=== PATIENT | male | born 1955 | race Caucasian/White ===

== ENCOUNTER 2017-02-06 17:20 | Emergency (ER) | payer BC ==
[~2017-02-06] VITALS: Ht 182.9 cm; Wt 118.8 kg
[2017-02-06 17:27] VITALS: TEMP 36.5; Ht 182.9 cm; Wt 118.8 kg
[2017-02-06] MEDS ORDERED: ONDANSETRON INJ 2 MG/ML 2 ML VIAL IV STA (17:42)
[2017-02-06] MEDS ORDERED: BACL10TA PO (17:46)
[2017-02-06] MEDS ORDERED: MELO7.5T5 PO (17:46)
[2017-02-06] MEDS: HYDROmorphone INJ 1 MG/ML SYR IV PRN ×2 (17:52→18:12)
[2017-02-06 18:00] LABS: BASO % 0.4 %; BASO ABS # 0.03 K/uL (0-0.2); COMPLETE YES; EOS % 5.6 %; HEMATOCRIT 46.7 % (42-52); IG% 0.1 %; LYMPH % 29.7 %; LYMPH ABS # 2.06 K/uL (1.2-3.4); MEAN CELL VOLUME 90.2 fL (80-100); MEAN CORPUSCULAR HEMOGLOBIN 31.3 pg (25-34); MEAN CORPUSCULAR HGB CONC 34.7 g/dl (32-36); MEAN PLATELET VOLUME 9.3 fL (7.4-10.4); MONO % 8.8 %; NEUT % 55.4 %; PLATELET COUNT 199 K/uL (130-400); RED BLOOD COUNT 5.18 M/uL (4.7-6.1); WHITE BLOOD COUNT 6.94 K/uL (4.8-10.8)
[2017-02-06 18:20] LABS: BLOOD UREA NITROGEN 24 mg/dl (7-18); BUN/CREATININE RATIO 25.1 (10-20); C-REACTIVE PROTEIN < 0.29 mg/dl (0-0.29); CALCIUM 9.2 mg/dl (8.5-10.1); CARBON DIOXIDE 27 mmol/L (21-32); CHLORIDE 108 mmol/L (98-107); CREATININE 0.95 mg/dl (0.60-1.40); GLUCOSE 98 mg/dl (70-99); POTASSIUM 4.1 mmol/L (3.5-5.1); SODIUM 141 mmol/L (136-145)
--- NOTE | 2017-02-06 18:51 | DIAGNOSTIC IMAGING REPORT ---
LUMBAR SPINE W/O CONTRAST HISTORY: Pain Back pain, incontinence TECHNIQUE: Multiplanar multisequence MRI of the lumbar spine was performed without the use of contrast. COMPARISON: None. FINDINGS: For the purpose of the report the L5-S1 disc space will be located on axial image 23 of 25. Normal signal characteristics of the vertebral bodies as well as intervertebral discs. Mild disc desiccation L5-S1. L1-L2: No significant central canal or neural foraminal narrowing. L2-L3: No significant central canal or neural foraminal narrowing. L3-L4: No significant central canal or neural foraminal narrowing. L4-L5: No significant central canal or neural foraminal narrowing. L5-S1: Focal left posterior disc herniation. Left posterior extruded disc fragment measuring 10 x 7 mm. This displaces the left S1 nerve root posteriorly. Mild narrowing of the neuroforamina bilaterally. IMPRESSION: 1. Focal left posterior disc herniation L5-S1 2. Left S1 nerve root is displaced posteriorly. 3. The Remainder of the study is negative. The above report was generated using voice recognition software. It may contain grammatical, syntax or spelling errors. Electronically signed by: Dexter Rosado M.D. 02/06/2017 6:50 PM Dictated Date/Time: 02/06/2017 6:46 PM
[2017-02-06 19:02] VITALS: BP 132/87; PULSE 70; O2SAT 95
[2017-02-06] MEDS ORDERED: PRED50TA PO ×2 (19:13→19:18)
[2017-02-06] MEDS ORDERED: OXYC1TAB3 PO ×2 (19:13→19:18)
[2017-02-06] MEDS ORDERED: DEXAMETHASONE SOD INJ 10 MG/ML VIAL IV ONE (19:15)
[2017-02-06] MEDS ORDERED: OXYCODONE IR HOME PACK PO ONE (19:15)
--- NOTE | 2017-02-06 20:56 | EMERGENCY ROOM VISIT NOTE ---
History Report prepared by Gerson: Juli Flor Under the Supervision of: Dr. Sunday Bynum M.D. First contact with patient: 17:32 Chief Complaint: BACK PAIN Stated Complaint: BACK AND LEFT LEG PAIN History of Present Illness The patient is a 61 year old male who presents to the Emergency Room with complaints of worsening low back pain for the past 3 weeks. He rates his discomfort as a 9/10 in severity and reports the pain radiates into his left leg , which feels numb. Sitting and walking worsen his pain. He denies any bowel or bladder incontinence. He saw his doctor recently and was given a steroid shot and muscle relaxer, which provided no relief. The patient reports he has lost approximately 15 pounds since his pain began because he cannot get to the kitchen in his home without extreme pain. Pt denies LOC, headache, fevers, chills, diaphoresis, visual changes, neck pain, chest pain, breathing difficulties, nausea, vomiting, abdominal pain, melena, hematochezia, urinary symptoms, weakness, lymphadenopathy, rash, or other complaints. His PCP is Dr. Purcell with [facility]. Source of History: patient Onset: 3 weeks OPERATIONS EXECUTIVE Position: back Symptom Intensity: 9/10 Timing: worsening Modifying Factors (Worsening): rest (sitting), movement (walking) Modifying Factors (Relieving): other (steroid shot and muscle relaxer) Review of Systems See HPI for pertinent positives and negatives. A total of ten systems were reviewed and were otherwise negative. Past Medical & Surgical Medical Problems: (1) Degenerative disc disease Surgical Problems: (1) H/O arthroscopic knee surgery Social History Smoking Status: Former Smoker Alcohol Use: occasionally Drug Use: none Marital Status: Housing Status: lives with family Occupation Status: employed Current/Historical Medications Scheduled Baclofen (Lioresal), 10 MG PO BID Meloxicam (Mobic), 15 MG PO DAILY Prednisone (Prednisone), 50 MG PO DAILY Scheduled PRN Oxycodone Ir (Roxicodone Ir), 1-2 TAB PO Q4H PRN for Severe Pain Allergies Coded Allergies: Tetracycline (Verified Allergy, Intermediate, 08/15/09) Uncoded Allergies: ANTIBIOTIC UNSURE OF NAME (Allergy, Unknown, 06/24/04) Physical Exam Vital Signs Date Time Temp Pulse Resp B/P (MAP) Pulse Ox O2 Delivery O2 Flow Rate FiO2 02/06/17 19:02 70 18 132/87 95 Room Air 02/06/17 17:27 36.5 79 22 149/83 94 Room Air Physical Exam GENERAL: Awake, alert, uncomfortable-appearing, in no distress HENT: Normocephalic, atraumatic. Oropharynx unremarkable. EYES: Normal conjunctiva. Sclera non-icteric. NECK: Supple. No nuchal rigidity. FROM. No JVD. RESPIRATORY: Clear to auscultation. CARDIAC: Regular rate, normal rhythm. Extremities warm and well perfused. Pulses equal. ABDOMEN: Soft, non-distended. No tenderness to palpation. No rebound or guarding. No masses. RECTAL: Deferred. MUSCULOSKELETAL: Chest examination reveals no tenderness. The back is symmetrical on inspection without obvious abnormality. There is no CVA tenderness to palpation. No joint edema. LOWER EXTREMITIES: Positive straight leg raise. Symmetric reflexes. Normal EHL function. Calves are equal size bilaterally and non-tender. No edema. No discoloration. NEURO: Normal sensorium. No sensory or motor deficits noted. SKIN: No rash or jaundice noted. Medical Decision & Procedures ER Provider Diagnostic Interpretation: Radiology results as stated below per my review and radiologist interpretation: LUMBAR SPINE W/O CONTRAST HISTORY: Pain Back pain, incontinence TECHNIQUE: Multiplanar multisequence MRI of the lumbar spine was performed without the use of contrast. COMPARISON: None. FINDINGS: For the purpose of the report the L5-S1 disc space will be located on axial image 23 of 25. Normal signal characteristics of the vertebral bodies as well as intervertebral discs. Mild disc desiccation L5-S1. L1-L2: No significant central canal or neural foraminal narrowing. L2-L3: No significant central canal or neural foraminal narrowing. L3-L4: No significant central canal or neural foraminal narrowing. L4-L5: No significant central canal or neural foraminal narrowing. L5-S1: Focal left posterior disc herniation. Left posterior extruded disc fragment measuring 10 x 7 mm. This displaces the left S1 nerve root posteriorly. Mild narrowing of the neuroforamina bilaterally. IMPRESSION: 1. Focal left posterior disc herniation L5-S1 2. Left S1 nerve root is displaced posteriorly. 3. The Remainder of the study is negative. The above report was generated using voice recognition software. It may contain grammatical, syntax or spelling errors. Electronically signed by: Dexter Rosado M.D. 02/06/2017 6:50 PM Laboratory Results 02/06/17 17:50 Red Blood Count 5.18, Mean Corpuscular Volume 90.2, Mean Corpuscular Hemoglobin 31.3, Mean Corpuscular Hemoglobin Concent 34.7, Mean Platelet Volume 9.3, Neutrophils (%) (Auto) 55.4, Lymphocytes (%) (Auto) 29.7, Monocytes (%) (Auto) 8.8, Eosinophils (%) (Auto) 5.6, Basophils (%) (Auto) 0.4, Neutrophils # (Auto) 3.84, Lymphocytes # (Auto) 2.06, Monocytes # (Auto) 0.61, Eosinophils # (Auto) 0.39, Basophils # (Auto) 0.03 02/06/17 17:50 Test 02/06/17 17:50 White Blood Count 6.94 K/uL (4.8-10.8) Red Blood Count 5.18 M/uL (4.7-6.1) Hemoglobin 16.2 g/dL (14.0-18.0) Hematocrit 46.7 % (42-52) Mean Corpuscular Volume 90.2 fL (80-100) Mean Corpuscular Hemoglobin 31.3 pg (25-34) Mean Corpuscular Hemoglobin Concent 34.7 g/dl (32-36) Platelet Count 199 K/uL (130-400) Mean Platelet Volume 9.3 fL (7.4-10.4) Neutrophils (%) (Auto) 55.4 % Lymphocytes (%) (Auto) 29.7 % Monocytes (%) (Auto) 8.8 % Eosinophils (%) (Auto) 5.6 % Basophils (%) (Auto) 0.4 % Neutrophils # (Auto) 3.84 K/uL (1.4-6.5) Lymphocytes # (Auto) 2.06 K/uL (1.2-3.4) Monocytes # (Auto) 0.61 K/uL (0.11-0.59) Eosinophils # (Auto) 0.39 K/uL (0-0.5) Basophils # (Auto) 0.03 K/uL (0-0.2) RDW Standard Deviation 40.9 fL (36.4-46.3) RDW Coefficient of Variation 12.4 % (11.5-14.5) Immature Granulocyte % (Auto) 0.1 % Immature Granulocyte # (Auto) 0.01 K/uL (0.00-0.02) Erythrocyte Sedimentation Rate 20 mm/hr (0-14) Anion Gap 6.0 mmol/L (3-11) Est Creatinine Clear Calc Drug Dose 110.0 ml/min Estimated GFR () 100.4 Estimated GFR (Non- 86.7 BUN/Creatinine Ratio 25.1 (10-20) Calcium Level 9.2 mg/dl (8.5-10.1) C-Reactive Protein < 0.29 mg/dl (0-0.29) Laboratory results reviewed by me Medications Administered Medications (Trade) Dose Ordered Sig/Ileana Route Start Time Stop Time Status Last Admin Dose Admin Hydromorphone HCl (Dilaudid Inj) 1 mg Q15M PRN IV 02/06/17 17:45 02/06/17 19:40 DC 02/06/17 18:12 1 MG Ondansetron HCl (Zofran Inj) 4 mg NOW STAT IV 02/06/17 17:42 02/06/17 17:43 DC 02/06/17 17:52 4 MG Dexamethasone Sodium Phosphate (Decadron Inj) 10 mg NOW ONCE IV 02/06/17 19:15 02/06/17 19:16 DC 02/06/17 19:12 10 MG Oxycodone HCl (Roxicodone Immediate Rel 5MG Home Pack) 1 homepack UD ONCE PO 02/06/17 19:15 02/06/17 19:16 DC 02/06/17 19:12 1 HOMEPACK ED Course 1735: The patient was evaluated in room C12. A complete history and physical exam was performed. 1741: Zofran 4 mg IV. 5: Dilaudid 1 mg IV. 1904: I reevaluated the patient. He feels much better after the medications and was able to ambulate to [facility]. I discussed his results and discharge instructions and he verbalized complete understanding and agreement. He is already established with [facility] and will follow up with them in the office. 1914: Oxycodone 5 mg 1 homepack PO, Decadron 10 mg IV. Medical Decision Triage Nursing notes reviewed. The patient's presentation and history were concerning for back pain. Etiologies such as lumbago, sciatica, cauda equina, epidural abscess, osteomyelitis, fracture, aortic disease, metastatic disease, infection, renal colic, gastrointestinal, as well as others were entertained. The patient was evaluated. He was uncomfortable. He was given Dilaudid and Zofran. He felt much better after a second dose of Dilaudid. His blood work is unremarkable. He will for MR imaging and this revealed a significant left- sided disc herniation in the L5-S1 region. This would fit with his area of pain going down the back of the left leg. He has no symptoms at this point to suggest cauda equina or surgical emergency. He is a patient of Dr. Wade and I will refer him to see Dr. Cheema. As he is feeling much more comfortable and can ambulate at this point outpatient management seems appropriate. The patient was given a dose of Decadron IV. He'll be placed on prednisone. He will use oxycodone for breakthrough pain. I did discuss this medication. I gave my usual and customary discussion regarding this issue. If he worsens in any way he will be back. By the evaluation outlined above other emergent etiologies such as those listed in the differential, as well as others, were deemed relatively unlikely. The patient was educated about the findings as listed above. All questions were answered and the patient was pleased with the treatment. Return instructions were outlined and the patient was discharged in stable condition. The patient was referred to orthopedic spine for follow-up for a recheck of the current condition. [place] Drug Monitoring Program Search Results: patient reviewed within database, no issues identified Medication Reconcilliation Current Medication List: was personally reviewed by me Blood Pressure Screening Patient's blood pressure: Elevated blood pressure Blood pressure disposition: Elevated BP felt to be situational Impression Primary Impression: Lumbar herniated disc Additional Impression: Lumbar radiculopathy Scribe Attestation The scribe's documentation has been prepared under my direction and personally reviewed by me in its entirety. I confirm that the note above accurately reflects all work, treatment, procedures, and medical decision making performed by me. Departure Information Dispostion Home / Self-Care Prescriptions Prednisone (Prednisone) 50 Mg Tab 50 MG PO DAILY for 4 Days, #4 TAB Prov: Sunday Bynum MD 02/06/17 Oxycodone Ir (Roxicodone Ir) 5 Mg Tab 1-2 TAB PO Q4H Y for Severe Pain, #24 TAB Prov: Sunday Bynum MD 02/06/17 Referrals Maria M Purcell D.O. (PCP) Patient Instructions My [facility], Spine Disk Common Probs Additional Instructions BACK PAIN/INJURY INSTRUCTIONS: DO NOT drive, drink alcohol, operate machinery, or perform dangerous activities today. You were given medications in the ER that can affect your ability to safely function or operate a vehicle. Prednisone 50mg: Once daily until the prescription is finished. It is best to take this earlier in the day as some patients note occasional difficulty falling asleep when taken in the late evening. Oxycodone (OxyIR) 5mg: Take 1-2 pills every four hours for breakthrough pain. Avoid alcohol, operating machinery or dangerous equipment, working on ladders or roofs, DRIVING, or situations where being under the influence may be dangerous. It is recommended to use an [id number] stool softener such as Colace, 100mg twice daily while taking this medication to avoid constipation. Ibuprofen(Motrin, Advil) may be used for fever or pain. Use 600mg every six hours as needed. Take with food. Avoid using more than 2400mg in a 24 hour period. Do not use 2400mg per day for more than three consecutive days without physician direction. Prolonged inappropriate use can lead to stomach upset or ulcers. This medication can be taken if you need to drive, work, or perform activities which may be dangerous when taking narcotic pain medication. (AND/OR) Acetaminophen(Tylenol) may be used for fever or pain. Use 1000mg every six hours as needed. Avoid using more than 4000mg in a 24 hour period. This medication can be taken if you need to drive, work, or perform activities which may be dangerous when taking narcotic pain medication. Rest and avoid heavy lifting until your symptoms resolve and then gradually return to full activity. A good rule of thumb is if it hurts your back to perform a certain activity, then it should be avoided until you are healthy again. A heating pad, warm compresses, or a hot shower may help with tight muscles and can be done several times a day as needed. Continue current medications. Return to the ER immediately for any numbness, tingling, severe pain, loss of control of your bowels or bladder, inability to walk, or as needed. Follow up with your primary care physician tomorrow for a recheck of your current condition. Call Dr. Cheema's office tomorrow to arrange follow up for your herniated L5-S1 disc. Tell the offset printer you were referred from the Emergency Room. Problem Qualifiers
[2017-02-18] MEDS ORDERED: METH1TAB81 PO (08:19)
[2017-02-18] MEDS ORDERED: HYDR4TAB2 PO (08:19)
[2017-02-25] MEDS ORDERED: HYDR-4383 PO (06:58)
== END 2017-02-06 19:25 | disposition home or self-care (01) ==
LOC: C.EDB 17:21 → C.EDC 19:25
DX: M51.26 Other intervertebral disc displacement, lumbar region (principal); M54.16 Radiculopathy, lumbar region; Z87.891 Personal history of nicotine dependence

== ENCOUNTER 2017-02-24 10:06 | Observation (INO) | payer BC ==
[2017-02-18 08:02] VITALS: BMI 35.0
--- NOTE | 2017-02-18 08:36 | PAT Medication Instructions ---
Service Date Feb 18, 2017. Current Home Medication List Hydromorphone Hcl (Dilaudid), 1-2 TAB PO Q4H PRN for Pain Methylprednisolone (Medrol), 4 MG PO DIRECTED Medication Instructions For Your Scheduled Surgery Methylprednisolone (Medrol), 4 MG PO DIRECTED (to be completed prior to surgery) - Take the following medications the morning of surgery with a sip of water: Hydromorphone Hcl (Dilaudid), 1-2 TAB PO Q4H PRN for Pain (okay to take up to 4 hours prior to surgery if needed) - Take the following medications as scheduled the night before surgery: Hydromorphone Hcl (Dilaudid), 1-2 TAB PO Q4H PRN for Pain (if needed) If you have any questions please call us at [phone] or [phone] or [phone]
--- NOTE | 2017-02-18 09:06 | DIAGNOSTIC IMAGING REPORT ---
CHEST PREADMISSION(PA/LAT) CLINICAL HISTORY: Preoperative chest COMPARISON STUDY: No previous studies for comparison. FINDINGS: The cardiac and mediastinal contours are normal. There is no evidence of focal pulmonary consolidation. There is no evidence of failure. No pleural effusions are visualized.[ IMPRESSION: No active disease in the chest. Electronically signed by: Román Yen M.D. 02/18/2017 9:05 AM Dictated Date/Time: 02/18/2017 9:04 AM
[2017-02-18 10:48] LABS: PROTHROMBIN TIME (PATIENT) 10.2 SECONDS (9.0-12.0)
[2017-02-18 10:49] LABS: URINE APPEARANCE CLEAR (CLEAR); URINE BILIRUBIN NEG (NEG); URINE COLOR YELLOW; URINE NITRITE NEG (NEG); URINE SPECIFIC GRAVITY 1.026 (1.000-1.030); UROBILINOGEN NEG (NEG)
[2017-02-18 10:59] LABS: MANUAL MICROSCOPIC REQUIRED? NO; REVIEW REQ? NO
[~2017-02-24] VITALS: Ht 182.9 cm; Wt 118.1 kg
[2017-02-24] VITALS (8 sets, daily range): BP systolic 112–148; BP diastolic 62–92; PULSE 70–82; TEMP 36.3–36.8; O2SAT 94–97; Ht 182.9 cm; Wt 118.1 kg
[~2017-02-24 10:06] MED LIST: ATROPINE SULFATE 0.1 MG/ML 5ML SYR IV PRN; CEFAZOLIN 2000 MG/60 ML D5W IV SCH; EpHEDrine SULFATE INJ 50 MG/ML AMP IV PRN; FENTANYL CITRATE INJ 50 MCG/1 ML 2 ML VIAL IV PRN; HYDR4TAB2 PO; HYDROmorphone INJ 1 MG/ML SYR IV PRN; LACTATED RINGER'S 1000ML 1,000 ML IV SCH; METH1TAB81 PO; ONDANSETRON INJ 2 MG/ML 2 ML VIAL IV PRN; SODIUM CHLORIDE 0.9% 1000ML 1,000 ML IV SCH
[2017-02-24] MEDS ORDERED: MIDAZOLAM HCL 1 MG/ML 2ML VIAL ONE (11:02)
[2017-02-24] MEDS ORDERED: FENTANYL CITRATE INJ 50 MCG/1 ML 2 ML VIAL ONE ×4 (11:03→13:10)
[2017-02-24] MEDS ORDERED: GELATIN SPONGE SZ 100 ONE (11:12)
[2017-02-24] MEDS ORDERED: THROMBIN FOR SOLN 20000 UNIT KIT ONE (11:12)
[2017-02-24] MEDS ORDERED: BACITRACIN 50000 UNIT VIAL ONE (11:13)
[2017-02-24] MEDS ORDERED: VANCOMYCIN HCL 1000MG/20ML VIAL ONE (11:13)
[2017-02-24] MEDS ORDERED: BUPIVACAINE/EPINEPHRINE 0.5% MPF 1:200,000 10 ML VIAL ONE (11:15)
--- NOTE | 2017-02-24 11:38 | History and Physical ---
History & Physical Date Feb 24, 2017. Chief Complaint Lumbar spine and lower extremity pain History of Present Illness The patient is a 61 year old male with complaints of back and leg pain is incapacitating. Her conservative measures. Past Medical/Surgical History Back pain, obesity Meniscectomy bilateral knees Additional History Hepatic Disease: No Endocrine Disorder: No Kidney Disease: No Hypertension: No Heart Disease: No Bleeding Tendencies: No Infectious Diseases: No Allergies Coded Allergies: Tetracycline (Verified Allergy, Intermediate, 02/24/17) Home Medications Scheduled Methylprednisolone (Medrol), 4 MG PO DIRECTED Scheduled PRN Hydromorphone Hcl (Dilaudid), 1-2 TAB PO Q4H PRN for Pain Physical Examination Skin: warm/dry Eyes: normal inspection ENT: normal ENT inspection Neck: supple Respiratory/Chest: lungs clear Cardiovascular: regular rate, rhythm Abdomen / GI: normal bowel sounds Back: normal inspection Extremities: normal inspection Genitourinary - Male: normal male genitalia Neurologic/Psych: + pertinent finding (significant pain with straight leg raising on the left-hand side. Loss of Achilles reflex and loss of sensation S1 nerve root distribution.) Diagnosis Diagnosis Disc herniation lumbar spine 5 S1 ASA Classification: ASA Class II Plan of Treatment Plan of treatment Lumbar spine discectomy L5-S1
[2017-02-24] MEDS ORDERED: HYDROmorphone INJ 2 MG/ML SYR/VIAL ONE ×2 (12:09→13:09)
[2017-02-24] MEDS ORDERED: DEXAMETHASONE SOD INJ 4 MG/ML VIAL ONE (12:49)
[2017-02-24] MEDS ORDERED: ONDANSETRON INJ 2 MG/ML 2 ML VIAL ONE (12:49)
[2017-02-24] MEDS ORDERED: NEOSTIGMINE METHYLSULFATE 5 MG/5 ML SYR ONE (12:49)
[2017-02-24] MEDS ORDERED: LIDOCAINE HCL 2% 2 ML VIAL (20MG/ML) ONE (12:49)
[2017-02-24] MEDS ORDERED: GLYCOPYRROLATE INJ 0.2 MG/ML VIAL ONE (12:49)
[2017-02-24] MEDS ORDERED: ROCURONIUM BROMIDE 10 MG/ML 5 ML VIAL ONE (12:49)
[2017-02-24] MEDS ORDERED: PROPOFOL IV EMULSION 10 MG/ML 20 ML VIAL IV ONE (12:49)
[2017-02-24] MEDS ORDERED: SODIUM CHLORIDE 0.9% 1000ML 1,000 ML IV SCH (13:07)
--- NOTE | 2017-02-24 13:10 | [facility] Operative Report ---
Operative Report Operative Date Feb 24, 2017. Pre-Operative Diagnosis Disc Herniation Lumbar Spine L5-S1 Post-Operative Diagnosis Disc Herniation Lumbar Spine L5-S1 Procedure(s) Performed Lumbar Spine Discectomy L5-S1 Surgeon Dr Cheema Bread Oven Operator Surgeon(s) Alden Casey Estimated Blood Loss 20cc Findings Large disc herniation lumbar spine L5-S1 Specimens None as per surgeon Complication(s) None Disposition Recovery Room / PACU Indications Paralyzing incapacitating leg pain Description of Procedure Patient was taken to the operating room and general intubated anesthetic provided to the patient. Placed prone on the Raymond table. Scrubbed prepped draped sterile. Skin incision fascial incision putting a deep self-retaining retractor. Used 3 inch blades. Did a laminotomy foraminotomies at L5-S1 on the left side [place] preserving all midline structures. Retracted the nerve root in a medial direction with the dura and were able to see quite easily a large disc herniation the the disc was actually in the process of extruding. He is very size pituitary Cruz juris the disc material as best possible completed the foraminotomies. Irrigated and closed in layers over vancomycin powder and Hemovac drain. He is 1 Vicryl suture to all and 30 on this on the skin surface sterile dressings applied. Patient returned to the recovery room satisfactory and stable condition. EBL 20 mL no complications. Sponge and needle count correct at the close I attest to the content of the Intraoperative Record and any orders documented therein. Any exceptions are noted below.
[2017-02-24] MEDS ORDERED: METOCLOPRAMIDE HCL INJ 5 MG/ML 2 ML VIAL IV PRN (13:15)
[2017-02-24] MEDS ORDERED: ACETAMINOPHEN 325 MG TAB PO PRN (13:15)
[2017-02-24] MEDS ORDERED: LORAZEPAM INJ 1 MG in SYRINGE 0 ML IV PRN (13:15)
[2017-02-24] MEDS ORDERED: MAGNESIUM HYDROXIDE SUSP 30 ML UDC PO PRN (13:15)
[2017-02-24] MEDS ORDERED: PROMETHAZINE HCL INJ 12.5 MG in SODIUM CHLORIDE 0.9% 50ML 50 ML IV PRN (13:15)
[2017-02-24] MEDS ORDERED: HYDROmorphone INJ 2 MG/ML SYR/VIAL IV PRN (13:15)
[2017-02-24] MEDS ORDERED: OXYCODONE/ACETAMINOPHEN 5-325 TAB PO PRN ×2 (13:15)
[2017-02-24] MEDS ORDERED: LORAZEPAM 1 MG TAB PO PRN (13:15)
[2017-02-24] MEDS ORDERED: HYDROmorphone INJ 1 MG/ML SYR IV PRN (13:15)
[2017-02-24] MEDS ORDERED: ONDANSETRON INJ 2 MG/ML 2 ML VIAL IV PRN (13:15)
--- NOTE | 2017-02-24 13:25 | DIAGNOSTIC IMAGING REPORT ---
SPINE ONE VIEW, ANY LEVEL HISTORY: Discectomy. FLUOROSCOPY TIME: 1 segment. FINDINGS: Intraoperative fluoroscopy was provided for the lumbar spine. fluoroscopic spot images were obtained. IMPRESSION: Fluoroscopy provided for a L5-S1 discectomy. The above report was generated using voice recognition software. It may contain grammatical, syntax or spelling errors. Electronically signed by: Dexter Rosado M.D. 02/24/2017 1:24 PM Dictated Date/Time: 02/24/2017 1:23 PM
--- NOTE | 2017-02-24 13:35 | Anesthesiology Progress Note ---
Anesthesia Post Op Note Date & Time Feb 24, 2017 at 13:35 Vital Signs Pain Intensity: 3 Vital Signs Past 12 Hours Date Time Temp Pulse Resp B/P (MAP) Pulse Ox O2 Delivery O2 Flow Rate FiO2 02/24/17 13:33 36.4 02/24/17 13:32 76 14 02/24/17 13:32 76 14 95 02/24/17 13:30 149/88 02/24/17 13:27 79 12 02/24/17 13:27 80 12 93 02/24/17 13:25 149/88 02/24/17 13:22 74 12 96 02/24/17 13:22 72 12 02/24/17 13:20 154/93 02/24/17 13:17 75 18 02/24/17 13:17 75 18 95 02/24/17 13:15 Nasal Cannula 4 02/24/17 13:15 146/87 02/24/17 13:13 151/85 02/24/17 13:12 74 17 97 02/24/17 13:12 74 17 02/24/17 13:02 36.4 85 14 156/90 96 Mask 10 02/24/17 10:23 36.6 77 20 148/92 (110) 96 Room Air Notes Mental Status: alert / awake / arousable, participated in evaluation Pt Amnestic to Procedure: Yes Nausea / Vomiting: adequately controlled Pain: adequately controlled Airway Patency, RR, SpO2: stable & adequate BP & HR: stable & adequate Hydration State: stable & adequate Anesthetic Complications: no major complications apparent
[2017-02-24] MEDS ORDERED: IV FLUIDS COMPLETED PRN (13:45)
--- NOTE | 2017-02-24 13:57 | Discharge Instructions ---
Discharge Instructions Date of Service Feb 24, 2017. Admission Reason for Admission: Lumbar Disc Herniation L5-S1 Discharge Discharge Diagnosis / Problem: same as above Discharge Goals Goal(s): Improve function Activity Recommendations Activity Limitations: as noted below Lifting Limitations: no more than 5 pounds Exercise/Sports Limitations: until after follow-up appointment May Resume Sexual Activity: after follow-up appointment Shower/Bathe: keep incision dry be very careful . Instructions / Follow-Up Instructions / Follow-Up MEDICATIONS: Please take your prescriptions as instructed at your pre-op appointment. SPECIAL CARE: The following information is intended to answer some of the common questions and concerns regarding your surgery. Each patient is an individual and receives individual counselling throughout the course of treatment, from diagnosis to surgery all the way through recovery. What follows is not an exhaustive list, but should be a useful guide to some of the common questions and concerns patients have regarding their surgeries. These are not provided to keep you from calling us; rather, they give you something accurate and concrete to reference as you recover from your procedure. If you need us, we are available to you. As always, if you are not sure about something, call us at [phone]. MEDICAL EMERGENCIES: For these conditions, call 911 or go to your local hospital-based Emergency Department - not [facility] or equivalent. * Paralysis * Severe chest pain or difficulty breathing * Swelling or redness of either leg Spine procedures can be rather complex and though complications are rare, they do occur. In such cases, effective advice regarding emergency situations cannot always be addressed over the telephone. You may be referred to the emergency department for more effective management of your problem. Activity Limitations: It is important to give your body time to heal, so please limit your activities : * In general, don't do anything that moves your spine too much. You should avoid contact sports, twisting or heavy lifting while you recover. * 5-10 pounds is all you should attempt to lift. * You should not plan on driving for approximately 3 weeks and you should avoid traveling more than 30-45 minutes at a time. Longer trips should be broken down with walking breaks spaced appropriately. * Physical therapy is not usually required. * Walking and good posture practices will help you recover and regain your function. * Avoid straining or sudden changes in position. * In general, the goal is to take it easy and recover. Don't cause any new problems. Just relax. Showers: * Do not take a bath, use a Jacuzzi or hot tub or otherwise submerge your incision. * It is usually safe to take a shower 4-5 days after your surgery. * Your incision does not require any special creams or ointments. * Simply clean it with soap and water, dry and re-dress with a clean bandage afterwards. Incision: * Keep incision clean, dry and protected until your first follow-up appointment. * Some amount of drainage and redness is normal. Any drainage should be fairly clear and not have a foul odor. * If you feel anything is wrong or you have excessive drainage, please call us. * Your stitches and thomas will be removed 10-14 days after your surgery. At the time of your first post-op visit. * Neck surgeries are typically closed with a suture underneath the skin. The steri-strips over the incision should be maintained until we see you in the office. Bracing: * You may be provided with a back or neck brace to encourage good posture and prevent injury. It will remind you not to do too much as you heal and will alert others to the fact that you have had a surgery. * Back braces may be removed for showers and when you are resting at home. They must be worn when you are walking around for any period of time or for travel. * For neck surgery, you will likely be provided with two cervical collars. The soft collar ([place] or foam rubber) is worn most commonly throughout the day and while sleeping. The plastic collar (provided at the hospital) is for showering/bathing. * Except while eating, collars should remain in place. More specifically, bracing is provided for a purpose and should be worn. * Please obtain your brace or collars prior to your operation and bring them to the hospital with you on the day of surgery. * You should also bring your collars to your post-op appointment with Dr. Cheema. You should always take good care of your body and practice healthy habits, especially following surgery. You should: * Follow your doctor's treatment plan * Sit and stand properly with good posture (ears over shoulders, shoulders over hips) Don't slouch * Learn to lift correctly * Exercise regularly (low-impact aerobic exercise is especially good, but check with your doctor first) * Generally, be up and walking for 5-10 minutes at a time at least 3-4 times per day from the day you get home * Increasing walking to tolerance until you can walk for 20-30 minutes at a time * Attain and maintain a healthy body weight * Eat healthy foods ( a well-balanced, low-fat diet rich in fruits and vegetables) and get enough calcium * Avoid excessive use of alcohol When to call our office - If you notice any of the following: * Increased pain not relieve by pain medicine * Fevers greater then 100 degrees F, chills or flu symptoms * Increased redness around incision * Drainage from the incision that is not clear * Any foul smelling drainage * Swelling or fluid collection beneath the skin Miscellaneous: * In the hospital, you may be given a walker or cane for support while walking. These are temporary needs and are intended to prevent injuries due to falls. You may discontinue them when you feel strong and steady enough on your feet. * Sleep in a comfortable position. We find that many patients find a lounge chair or recliner with several pillows to be beneficial in the early post-operative period. * The support stockings should be used for 7-10 days and may be discontinued when you are back to walking more and conducting usual household activities. No problem is insignificant. We are here to help you and get you well. Contact us at [phone]. Definitions: Foraminotomy: If part of the disc or a bone spur (osteophyte) is pressing on a nerve as it leaves the vertebra (through an exit called the foramen), a foraminotomy may be done. Otomy means "to make an opening." A foraminotomy is making the opening of the foramen larger, so the nerve can exit without being compressed. Laminotomy: Similar to the foraminotomy, a laminotomy makes a larger opening, this time in your bony plate protecting your spinal canal and spinal cord (the lamina). The lamina may be pressing on your nerve, so the surgeon may make more room for the nerves using a laminotomy. Laminectomy: Sometimes, a laminotomy is not sufficient. The surgeon may need to remove all or part of the lamina. This procedure is called a laminectomy. This can often be done at many levels without any harmful effects. Current Hospital Diet Patient's current hospital diet: Regular Diet Discharge Diet Recommended Diet: Regular Diet Procedures Procedures Performed: Lumbar Spine Discectomy L5-S1 Pending Studies Studies pending at discharge: no Medical Emergencies . Who to Call and When: Medical Emergencies: If at any time you feel your situation is an emergency, please call 911 immediately. . Non-Emergent Contact Non-Emergency issues call your: Surgeon Call Non-Emergent contact if: you have any medication questions . "Provider Documentation" section prepared by Sunday Cheema. . VTE Core Measure Inpt VTE Proph given/why not?: Treatment not indicated
[2017-02-24] MEDS: KETOROLAC TROMETHAMINE 30 MG/ML VIAL IV SCH ×2 (15:52→21:43)
[2017-02-24] MEDS: DEXAMETHASONE INJ 10 MG in SYRINGE 0 ML IV SCH (20:21)
[2017-02-24] MEDS: CEFAZOLIN IV 2,000 MG in DEXTROSE 5% 50ML 50 ML IV SCH (20:21)
[2017-02-24] MEDS ORDERED: NURSING VERBAL MED ORDER ONE (22:00)
[2017-02-25] MEDS: CEFAZOLIN IV 2,000 MG in DEXTROSE 5% 50ML 50 ML IV SCH ×2 (03:48→11:40)
[2017-02-25] MEDS: DEXAMETHASONE INJ 10 MG in SYRINGE 0 ML IV SCH ×2 (03:49→11:39)
[2017-02-25] MEDS: KETOROLAC TROMETHAMINE 30 MG/ML VIAL IV SCH ×2 (03:49→10:37)
[2017-02-25 04:00] VITALS: BP 106/64; PULSE 68; TEMP 36.4; O2SAT 93
[2017-02-25] MEDS ORDERED: BISACODYL 5 MG TABEC PO PRN (06:00)
[2017-02-25] MEDS ORDERED: BISACODYL 10 MG SUPP PR PRN (06:00)
[2017-02-25 06:50] VITALS: BP 109/67; PULSE 68; TEMP 36.4; O2SAT 94
[2017-02-25] MEDS ORDERED: HYDR-4383 PO (06:58)
--- NOTE | 2017-02-25 08:11 | DISCHARGE SUMMARY ---
SUBJECTIVE: Moderate complaints of back pain. Minimal lower extremity difficulty. Denies fevers, sweats, chills, confusion. OBJECTIVE: Vital signs stable. Laboratory work not indicated. Afebrile. ASSESSMENT: Status post discectomy lumbar spine. DISPOSITION: Will get him home later on this morning, I would assume around lunch time today. His dressing will be removed. He has instructions and precautions from the office also provided here at the hospital. His followup should be in approximately 12-14 days. Keep his wound clean and dry. His ALEJANDRA support stockings can be DC'd and use the back brace for support.
[2017-02-25] MEDS ORDERED: POLYETHYLENE (MIRALAX) 17 GM PACK PO SCH (09:00)
--- NOTE | 2017-02-25 10:00 | Anesthesiology Progress Note ---
Anesthesia Post Op Note Date & Time Feb 25, 2017 at 09:59 Vital Signs Pain Intensity: 0.0 Vital Signs Past 12 Hours Date Time Temp Pulse Resp B/P (MAP) Pulse Ox O2 Delivery O2 Flow Rate FiO2 02/25/17 07:20 Room Air 02/25/17 06:50 36.4 68 18 109/67 (81) 94 Room Air 02/25/17 04:00 36.4 68 16 106/64 (78) 93 Room Air 02/25/17 00:30 Room Air 02/24/17 22:59 36.8 73 18 114/62 (79) 95 Room Air Notes Mental Status: alert / awake / arousable, participated in evaluation Pt Amnestic to Procedure: Yes Nausea / Vomiting: adequately controlled Pain: adequately controlled Airway Patency, RR, SpO2: stable & adequate BP & HR: stable & adequate Hydration State: stable & adequate Anesthetic Complications: no major complications apparent
[2017-02-25 11:46] VITALS: BP 109/67; PULSE 68; TEMP 36.4; O2SAT 94
== END 2017-02-25 12:38 | disposition home or self-care (01) ==
LOC: C.ACU 10:06 → C.3E 10:48 → ENRESERV 13:30
PROVIDERS: ADMIT Orthopaedic Surgery Orthopaedic Surgery of the Spine; ATTEND Orthopaedic Surgery Orthopaedic Surgery of the Spine
DX: M51.27 Other intervertebral disc displacement, lumbosacral region (principal); M19.90 Unspecified osteoarthritis, unspecified site; Z87.891 Personal history of nicotine dependence

== ENCOUNTER 2021-10-15 20:45 | Inpatient (IN) ==
[2021-10-15] MEDS ORDERED: SODIUM CHLORIDE 0.9% 1000ML 1,000 ML IV ONE ×3 (20:59→23:49)
[2021-10-15] MEDS ORDERED: ONDANSETRON INJ 2 MG/ML 2 ML VIAL IV STA (21:07)
[2021-10-15] MEDS ORDERED: FAMOTIDINE 20MG IV PUSH 20 MG/5 ML SYR IV STA (21:07)
[2021-10-15 21:13] LABS: Basophils # (auto) 0.04 K/uL (0-0.2); Basophils % (auto) 0.2 %; Eosinophils # (auto) 0.12 K/uL (0-0.5); Eosinophils % (auto) 0.7 %; Hematocrit (blood only) 45.2 % (42-52); Hemoglobin 16.2 g/dL (14.0-18.0); Immature Granulocytes # (auto) 0.08 K/uL (0.00-0.02); Immature Granulocytes % (auto) 0.4 %; Lymphocytes % (auto) 7.1 %; Mean Corpuscular Hemoglobin 32.2 pg (25-34); Mean Corpuscular Hgb Conc 35.8 g/dL (32-36); Mean Corpuscular Volume 89.9 fL (80-100); Mean Platelet Volume 9.3 fL (7.4-10.4); Monocytes # (auto) 0.74 K/uL (0.11-0.59); Monocytes % (auto) 4.1 %; Neutrophils # (auto) 15.95 K/uL (1.4-6.5); Neutrophils % (auto) 87.5 %; Platelet Count 263 K/uL (130-400); RDW Coefficient of Variation 13.3 % (11.5-14.5); RDW Standard Deviation 43.5 fL (36.4-46.3); Red Blood Count 5.03 M/uL (4.7-6.1); White Blood Count 18.23 K/uL (4.8-10.8)
[2021-10-15 21:27] LABS: iSTAT Creatinine 1.1 mg/dl (0.6-1.3); iSTAT Ionized Calcium 1.26 mmol/l (1.12-1.32); iSTAT Potassium 3.9 mmol/L (3.3-5.0)
[2021-10-15 21:37] LABS: Troponin I < 0.03 ng/ml (0-0.04)
--- NOTE | 2021-10-15 21:37 | Emergency Department Note ---
Impression & Plan Small bowel obstruction, Intractable nausea and vomiting, Leukocytosis, Acute hypotension ED Provider Note NAME: RIMA CHEN AGE: 66 SEX: M ARRIVES VIA: Walk-In INFORMANT: Patient ED PROVIDER(S): Pranay Curtis MD CHIEF COMPLAINT: Abd pain, PLAN: Disposition: Admit MEDICAL DECISION MAKING: The patient is a pleasant 66-year-old gentleman with a past medical history of hypertension, hyperlipidemia who presents emerge department accompanied by his for evaluation of cute onset epigastric pain and nausea that began around 3 PM when he returned home from work. They report he did take Tums and Pepto- Bismol but felt no relief. He then was appearing diaphoretic and feeling lightheaded and so presented to emergency department. He denies any recent history of similar symptoms. He denies any pattern of exertional chest pain or shortness of breath and reports he is able to exert himself without difficulty. Denies any recent illness, sick contacts On arrival, the patient is uncomfortable appearing but no acute distress, initially afebrile with stable vital signs. However he then began to feel increasing lightheaded and was hypotensive in the 60s and then had significant emesis. 2L NSS IV fluids were initiated and patient was laid supine and his blood pressure responded. He appears clinically dry. His abdomen is mildly distended but soft and nontender. EKG without overt acute ischemia. Chest x-ray mild nonspecific interstitial thickening and otherwise unremarkable per my preliminary review. WBC 18K, nonspecific and suspect may be related to the patient's intractable na usea and vomiting. H/H 16.2/45.2 consistent with the patient's clinically dry appearance. Chemistry without metabolic acidosis. BUN 35 with BUN/creatinine> 30 consistent with suspected dehydration. Electrolytes without significant abnormality. LFTs unremarkable. Troponin negative/undetectable. Lipase not elevated. Covid-19 RNA, NAAT negative. Per preliminary stat rad report: CTA of the chest was negative for PE or acute aortic pathology. Nonspecific interstitial prominence is noted. CT of the abdomen pelvis demonstrates gas and fluid-filled distended proximal small bowel loops which is suggestive of small bowel obstruction. Upon reevaluation the patient was significantly improved appearing after IV fluid hydration, famotidine, Zofran. He reported near resolution of his abdominal pain and nausea. His abdomen was nontender. Given the patient appears significantly improved we agreed to defer NG tube placement at this time. However he does agree with plan for admission for further observation and management. Case was discussed with Sathya Lorenzosan [facility] hospitalist who will evaluate the patient for admission. Triage Nursing notes reviewed and agree them. Prior medical records reviewed Vital Signs: reviewed and remarkable for hypotension. Differential diagnosis: Appendicitis, testicular torsion, infections, diverticulitis, UTI, obstruction, mesenteric ischemia, aortic pathology, inflammatory bowel disease, renal colic, PUD, pancreatitis, biliary pathology, hernia, volvulus, constipation, as well as other pathologies. ER treatment provided: See below. Diagnostics interpreted by me: ECG: Normal sinus rhythm, 65 bpm, no ectopy, no overt ST elevation or depression, QTC 409, QRS 104. Cardiac Monitoring: An order for continuous cardiac monitoring was placed and demonstrated Normal sinus rhythm, 65 bpm, no ectopy. Laboratory studies: See below Imaging studies: See below Consultation(s): [facility] will evaluate the patient for admission. HPI: The patient is a pleasant 66-year-old gentleman with a past medical history of hypertension, hyperlipidemia who presents emerge department accompanied by his for evaluation of cute onset epigastric pain and nausea that began around 3 PM when he returned home from work. They report he did take Tums and Pepto-Bismol but felt no relief. He then was appearing diaphoretic and feeling lightheaded and so presented to emergency department. He denies any recent history of similar symptoms. He denies any pattern of exertional chest pain or shortness of breath and reports he is able to exert himself without difficulty. Denies any recent illness, sick contacts. ROS: See above HPI for pertinent positives & negatives. A total of 10 systems re viewed and were otherwise negative. VITALS:See Below PHYSICAL EXAMINATION: GENERAL: Awake, alert, uncomfortable-appearing, in no distress HENT: Normocephalic, atraumatic. Oropharynx with dry mucous membranes and otherwise unremarkable. EYES: Normal conjunctiva. Sclera non-icteric. NECK: Supple. No nuchal rigidity. FROM. No JVD. RESPIRATORY: Clear to auscultation. CARDIAC: Regular rate, normal rhythm. Extremities warm and well perfused. Pulses equal. ABDOMEN: Mildly distended but soft. No tenderness to palpation. No rebound or guarding. No masses. RECTAL: Deferred. MUSCULOSKELETAL: Chest examination reveals no tenderness. The back is symm etrical on inspection without obvious abnormality. There is no CVA tenderness to palpation. No joint edema. LOWER EXTREMITIES: Calves are equal size bilaterally and non-tender. No edema. No discoloration. NEURO: Normal sensorium. No sensory or motor deficits noted. SKIN: Diaphoretic, clammy. No rash or jaundice noted. ED Course: Critical care: I have personally spent greater than 35 minutes of critical care time in the direct management of this patient. This includes bedside care, interpretation of diagnostic studies, and testing, discussion with consultants, patient, and family members, and other required patient management activities. This 35 minutes is in excess of all separately billable procedures. Pranay Curtis MD Past Med/Surg History Medical History Hyperlipidemia Hypertension Lumbar radiculopathy Surgical History History of arthroscopy of left knee History of lumbar discectomy Family History Father Myocardial infarction Grandfather (Paternal) Myocardial infarction Grandfather (Maternal) Prostate cancer Denies family history of Colon cancer Ovarian cancer Breast cancer Social History Smoking Status: Former smoker Hx Alcohol Use: Yes marital status: Current Living Situation: Spouse current occupational status: employed Feels Safe at Home: Yes Allergies Allergies Allergy/AdvReac Type Severity Reaction Status Date / Time tetracycline Allergy Severe FACE, Verified 10/15/21 21:29 TONGUE, LIPS SWELLED Home Meds Home Medications Medication Instructions Recorded Confirmed lisinopril 20 1 tab PO QAM 10/15/21 10/15/21 mg-hydrochlorothiazide 25 mg tablet rosuvastatin 10 mg tablet 10 mg PO QAM 10/15/21 10/15/21 Results & Data (ED) Vital Signs Vital Signs - 24 hr 10/15/21 20:47 10/15/21 21:00 10/15/21 21:01 Temperature Temperature Source Oral Pulse Rate 86 61 57 L Pulse Rate from SpO2 Sensor Respiratory Rate 18 16 16 Respiratory Effort / Characteristics Non-Labored Spontaneous Respiratory Depth Normal Blood Pressure 119/76 67/42 L 66/40 L Blood Pressure Mean 90 50 48 Blood Pressure Position Sitting Pulse Oximetry 93 93 94 Oxygen Delivery Method Room Air Oxygen Flow Rate Sepsis Recent Fever Within 48 Hours No Sepsis New/Unexplained Change in Mental Status N/A Sepsis Action Taken by Nursing No Action Required 10/15/21 21:05 10/15/21 21:09 10/15/21 21:10 Temperature Temperature Source Pulse Rate 73 74 70 Pulse Rate from SpO2 Sensor Respiratory Rate 16 20 18 Respiratory Effort / Characteristics Respiratory Depth Blood Pressure 113/75 115/68 111/69 Blood Pressure Mean 87 83 83 Blood Pressure Position Pulse Oximetry 93 94 92 Oxygen Delivery Method Oxygen Flow Rate Sepsis Recent Fever Within 48 Hours Sepsis New/Unexplained Change in Mental Status Sepsis Action Taken by Nursing 10/15/21 21:15 10/15/21 21:20 10/15/21 21:25 Temperature 36.7 C Temperature Source Pulse Rate 72 74 78 Pulse Rate from SpO2 Sensor Respiratory Rate 16 16 18 Respiratory Effort / Characteristics Respiratory Depth Blood Pressure 131/66 116/69 119/70 Blood Pressure Mean 87 84 86 Blood Pressure Position Pulse Oximetry 88 L 93 97 Oxygen Delivery Method Nasal Cannula Nasal Cannula Oxygen Flow Rate 2 2 Sepsis Recent Fever Within 48 Hours Sepsis New/Unexplained Change in Mental Status Sepsis Action Taken by Nursing 10/15/21 21:30 10/15/21 21:35 10/15/21 22:01 Temperature Temperature Source Pulse Rate 73 69 74 Pulse Rate from SpO2 Sensor Respiratory Rate 18 18 20 Respiratory Effort / Characteristics Respiratory Depth Blood Pressure 127/71 126/73 135/83 Blood Pressure Mean 89 90 100 Blood Pressure Position Pulse Oximetry 97 99 99 Oxygen Delivery Method Nasal Cannula Nasal Cannula Oxygen Flow Rate 2 2 Sepsis Recent Fever Within 48 Hours Sepsis New/Unexplained Change in Mental Status Sepsis Action Taken by Nursing 10/15/21 22:15 10/15/21 22:30 10/15/21 23:00 Temperature Temperature Source Pulse Rate 71 74 72 Pulse Rate from SpO2 Sensor Respiratory Rate 18 18 18 Respiratory Effort / Characteristics Respiratory Depth Blood Pressure 113/77 117/72 127/76 Blood Pressure Mean 89 87 93 Blood Pressure Position Pulse Oximetry 100 99 93 Oxygen Delivery Method Room Air Oxygen Flow Rate Sepsis Recent Fever Within 48 Hours Sepsis New/Unexplained Change in Mental Status Sepsis Action Taken by Nursing 10/15/21 23:15 10/15/21 23:20 10/15/21 23:30 Temperature Temperature Source Pulse Rate 70 72 70 Pulse Rate from SpO2 Sensor 71 71 Respiratory Rate 22 20 21 Respiratory Effort / Characteristics Respiratory Depth Blood Pressure 132/82 127/80 Blood Pressure Mean 98 95 Blood Pressure Position Pulse Oximetry 95 94 95 Oxygen Delivery Method Room Air Oxygen Flow Rate Sepsis Recent Fever Within 48 Hours Sepsis New/Unexplained Change in Mental Status Sepsis Action Taken by Nursing 10/15/21 23:45 10/16/21 00:00 Temperature Temperature Source Pulse Rate 72 75 Pulse Rate from SpO2 Sensor 75 Respiratory Rate 21 19 Respiratory Effort / Characteristics Respiratory Depth Blood Pressure 121/82 132/86 Blood Pressure Mean 95 101 Blood Pressure Position Pulse Oximetry 93 96 Oxygen Delivery Method Room Air Oxygen Flow Rate Sepsis Recent Fever Within 48 Hours Sepsis New/Unexplained Change in Mental Status Sepsis Action Taken by Nursing Laboratory Data Attestation: I reviewed the patient's lab results. Result diagrams: 10/15/21 21:04 10/15/21 22:18 Lab Results 10/15/21 10/15/21 10/15/21 Range/Units 21:04 21:04 21:15 WBC 18.23 H (4.8-10.8) K/uL RBC 5.03 (4.7-6.1) M/uL Hgb 16.2 (14.0-18.0) g/dL POC Hgb 16.0 (14.0-18.0) g/dl Hct 45.2 (42-52) % POC Hct 47 (42-52) % MCV 89.9 (80-100) fL MCH 32.2 (25-34) pg MCHC 35.8 (32-36) g/dL RDW Std Deviation 43.5 (36.4-46.3) fL RDW Coeff of Hali 13.3 (11.5-14.5) % Plt Count 263 (130-400) K/uL MPV 9.3 (7.4-10.4) fL Immature Gran % (Auto) 0.4 % Neut % (Auto) 87.5 % Lymph % (Auto) 7.1 % [place] % (Auto) 4.1 % Eos % (Auto) 0.7 % Baso % (Auto) 0.2 % Neut # (Auto) 15.95 H (1.4-6.5) K/uL Lymph # (Auto) 1.30 (1.2-3.4) K/uL [place] # (Auto) 0.74 H (0.11-0.59) K/uL Eos # (Auto) 0.12 (0-0.5) K/uL Baso # (Auto) 0.04 (0-0.2) K/uL Immature Gran # (Auto) 0.08 H (0.00-0.02) K/uL POC Sodium 137 (135-144) mmol/L Sodium 135 L (136-145) mmol/L POC Potassium 3.9 (3.3-5.0) mmol/L Potassium TNP POC Chloride 98 L (101-112) mmol/L Chloride 97 L (98-107) mmol/L Carbon Dioxide 26 (21-32) mmol/L POC Total CO2 26 (24-31) mmol/L Anion Gap 12 H (3-11) POC Anion Gap 18.0 (16-25) mmol/L POC BUN 36 H (7-18) mg/dl BUN 35 H (6-23) mg/dl Creatinine 1.13 (0.6-1.4) mg/dl POC Creatinine 1.1 (0.6-1.3) mg/dl Est Cr Clr Drug Dosing 90.1 ml/min Est GFR ( Amer) 78.6 ml/min Est GFR (Non-Af Amer) 67.8 ml/min BUN/Creatinine Ratio 31.0 H (10-20) Glucose 161 H (70-99(Fasting)) mg/dl POC Glucose (other) 183 H (70-99) mg/dl Calcium 10.6 H (8.5-10.1) mg/dl POC Ioniz Calcium Kirk 1.26 (1.12-1.32) mmol/l Total Bilirubin 0.8 (0.2-1.0) mg/dl Direct Bilirubin TNP AST TNP ALT 23 (7-52) U/L Alkaline Phosphatase 79 (34-104) U/L Troponin I < 0.03 (0-0.04) ng/ml Total Protein 8.4 H (6.0-8.3) gm/dl Albumin 4.7 (3.4-5.0) gm/dl Globulin 3.7 (2.5-4.0) gm/dl Albumin/Globulin Ratio 1.3 (0.9-2) Lipase 51 (11-82) U/L SARS-CoV-2, RNA, NAAT (NEGATIVE) 10/15/21 10/15/21 Range/Units 22:18 23:40 WBC (4.8-10.8) K/uL RBC (4.7-6.1) M/uL Hgb (14.0-18.0) g/dL POC Hgb (14.0-18.0) g/dl Hct (42-52) % POC Hct (42-52) % MCV (80-100) fL MCH (25-34) pg MCHC (32-36) g/dL RDW Std Deviation (36.4-46.3) fL RDW Coeff of Hali (11.5-14.5) % Plt Count (130-400) K/uL MPV (7.4-10.4) fL Immature Gran % (Auto) % Neut % (Auto) % Lymph % (Auto) % [place] % (Auto) % Eos % (Auto) % Baso % (Auto) % Neut # (Auto) (1.4-6.5) K/uL Lymph # (Auto) (1.2-3.4) K/uL [place] # (Auto) (0.11-0.59) K/uL Eos # (Auto) (0-0.5) K/uL Baso # (Auto) (0-0.2) K/uL Immature Gran # (Auto) (0.00-0.02) K/uL POC Sodium (135-144) mmol/L Sodium (136-145) mmol/L POC Potassium (3.3-5.0) mmol/L Potassium 4.4 POC Chloride (101-112) mmol/L Chloride (98-107) mmol/L Carbon Dioxide (21-32) mmol/L POC Total CO2 (24-31) mmol/L Anion Gap (3-11) POC Anion Gap (16-25) mmol/L POC BUN (7-18) mg/dl BUN (6-23) mg/dl Creatinine (0.6-1.4) mg/dl POC Creatinine (0.6-1.3) mg/dl Est Cr Clr Drug Dosing ml/min Est GFR ( Amer) ml/min Est GFR (Non-Af Amer) ml/min BUN/Creatinine Ratio (10-20) Glucose (70-99(Fasting)) mg/dl POC Glucose (other) (70-99) mg/dl Calcium (8.5-10.1) mg/dl POC Ioniz Calcium Kirk (1.12-1.32) mmol/l Total Bilirubin (0.2-1.0) mg/dl Direct Bilirubin 0.1 AST 20 ALT (7-52) U/L Alkaline Phosphatase (34-104) U/L Troponin I (0-0.04) ng/ml Total Protein (6.0-8.3) gm/dl Albumin (3.4-5.0) gm/dl Globulin (2.5-4.0) gm/dl Albumin/Globulin Ratio (0.9-2) Lipase (11-82) U/L SARS-CoV-2, RNA, NAAT NEGATIVE (NEGATIVE) Administered Medications Discontinued Medications Sodium Chloride (Nss 1000ml) 1,000 mls @ 999 mls/hr IV .Q1H1M ONE Stop: 10/15/21 21:59 Last Infusion: 10/15/21 22:20 Dose: 0 mls/hr Documented by: [id number] Admin: 10/15/21 21:14 Dose: 999 mls/hr Documented by: [id number] Sodium Chloride (Nss 1000ml) 1,000 mls @ 999 mls/hr IV .Q1H1M ONE Stop: 10/15/21 22:07 Last Infusion: 10/15/21 22:21 Dose: 0 mls/hr Documented by: [id number] Admin: 10/15/21 21:14 Dose: 999 mls/hr Documented by: [id number] Famotidine (Pepcid 20mg Iv Push) 20 mg in 5 mls @ 2.5 mls/min IV NOW STA Stop: 10/15/21 21:08 Last Admin: 10/15/21 21:13 Dose: 2.5 mls/min Documented by: [id number] Ioversol (Optiray 320 125ml) 117 ml IV ONCE ONE Stop: 10/15/21 21:56 Last Admin: 10/15/21 21:55 Dose: 117 ml Documented by: [id number] Ondansetron HCl (Ondansetron Inj 2 Mg/Ml 2 Ml Vial) 4 mg IV NOW STA Stop: 10/15/21 21:08 Last Admin: 10/15/21 21:13 Dose: 4 mg Documented by: [id number] Imaging Data Radiologist's Impression: [email or web address] Preliminary Findings Only See Final Report For Complete Findings CTA CHEST: The pulmonary arterial tree is well-opacified with contrast. No pulmonary emboli are identified. The aorta is mildly calcified but nondilated. There is no aneurysm or dissection. The heart is not enlarged. There is mild coronary calcification. No pericardial effusion is seen. No mediastinal or axillary lymphadenopathy or mass is present. The lungs are well-inflated. There is slight central interstitial prominence which may represent edema or subsegmental atelectasis. No pneumothorax or pleural effusion. Mild multilevel osteophytosis throughout the thoracic spine. No acute fracture or bone lesion. Radiologist: Broderick Brown MD Study ready at 22:05 and initial results transmitted at 23:03 Preliminary Findings Only See Final Report For Complete Findings CT ABDOMEN & PELVIS With Contrast: Comparison to December 15, 2018. There are gas and fluid-filled distended proximal small bowel loops in the upper abdomen. There is a segment of slightly edematous but appearing small bowel containing more solid-appearing stool beyond which the small bowel is completely decompressed indicating intermediate grade mid small bowel obstruction. The appendix is normal. No pneumoperitoneum or free fluid is seen. The liver, gallbladder, pancreas, spleen, adrenal glands, and kidneys appear nonacute. There are 2 simple cysts involving the right kidney measuring up to 4 cm. The aorta is mildly calcified but nondilated. Mild degenerative changes in the spine. No fracture or bone lesion. Radiologist: Broderick Brown MD Study ready at 22:09 and initial results transmitted at 23:05 Discharge Plan Visit Data Chief Complaint: GI Assessment Stated Complaint: ABDOMINAL PAIN ED Provider: Pranay Curtis Discharge Problem: Small bowel obstruction, Intractable nausea and vomiting, Leukocytosis, Acute hypotension Discharge Instructions Interventions: ED Discharge Assessment Last Done: 10/16/21 00:24 Forms Stand Alone Forms: Application Security Prescriptions Prescriptions: No Action lisinopril-hydrochlorothiazide 20-25 mg Tablet 1 tab PO QAM RF: 0 rosuvastatin 10 mg tablet 10 mg PO QAM RF: 0 Referrals Referrals: Dariela Fischer CRNP, MS, [employer] [Nurse Practitioner] - Discharge Problem: Leukocytosis Qualifiers: Leukocytosis type: unspecified Qualified Code(s): D72.829 - Elevated white blood cell count, unspecified
[2021-10-15 21:44] LABS: Alanine Aminotransferase 23 U/L (7-52); Albumin Globulin Ratio 1.3 (0.9-2); Albumin Level 4.7 gm/dl (3.4-5.0); Alkaline Phosphatase 79 U/L (34-104); Anion Gap 12 (3-11); Bilirubin,Total 0.8 mg/dl (0.2-1.0); Blood Urea Nitrogen 35 mg/dl (6-23); Calcium 10.6 mg/dl (8.5-10.1); Carbon Dioxide 26 mmol/L (21-32); Chloride 97 mmol/L (98-107); Creatinine Clr Calc Pharmacy 90.1 ml/min; Est GFR (African American) 78.6 ml/min; Est GFR (Non-African American) 67.8 ml/min; Globulin 3.7 gm/dl (2.5-4.0); Glucose 161 mg/dl (70-99(Fasting)); Lipase 51 U/L (11-82); Sodium 135 mmol/L (136-145); Total Protein 8.4 gm/dl (6.0-8.3)
[2021-10-15] MEDS ORDERED: OPTIRAY 320 125ml IV ONE (21:55)
[2021-10-15 22:41] LABS: Bilirubin Direct 0.1 mg/dl (0-0.2); Potassium 4.4 mmol/L (3.5-5.1)
--- NOTE | 2021-10-15 23:40 | History & Physical Report ---
Date of Service October 15, 2021 Assessment & Plan (1) Small bowel obstruction: Plan: Patient currently comfortable. No prior abdominal surgeries. hypertension, stable hyperlipidemia, on statin Rx prediabetes, hemoglobin A1c of 5.17 March 2021 past tobacco abuse GMF Bowel rest, IVF NGT decompression if recurrent emesis Surgery consult Re: Bowel obstruction DVT prophylaxis per Lovenox subcu Full code Patient requesting updates from providers. Ms. Laisha Verma, contact #[phone]. Text document was generated using [employer] voice recognition software. It may contain grammatical or spelling errors. Kindly contact undersigned for clarification of any documentation item in question. History of Present Illness Chief Complaint: Abdominal pain Primary Care Provider: Sunday Xiao MD History obtained from patient, family, and records. Medical history significant for hypertension, hyperlipidemia, prediabetes, past tobacco abuse. Last confinement 2016 under [facility] for elective back surgery. This afternoon, patient noted sudden onset achy epigastric pain with nausea symptoms after returning home from work. No relief with antacid intake. Subsequent sweatiness and emesis. No chest pain, no S OB. Good bowel movement today. No prior episodes. No prior abdominal surgeries. Patient brought to the ER by . Medical History as above Surgical History : Neck surgery, knee surgeries Family History : Heart disease Personal/Social history : Past tobacco abuse, occasional EtOH intake, landscape work Allergies Allergy/AdvReac Type Severity Reaction Status Date / Time tetracycline Allergy Severe FACE, Verified 10/15/21 21:29 TONGUE, LIPS SWELLED Home Medications Medication Instructions Recorded Confirmed Type lisinopril 20 1 tab PO QAM 10/15/21 10/15/21 History mg-hydrochlorothiazide 25 mg tablet rosuvastatin 10 mg tablet 10 mg PO QAM 10/15/21 10/15/21 History Past Med/Surg History Medical History Hyperlipidemia Hypertension Lumbar radiculopathy Surgical History History of arthroscopy of left knee History of lumbar discectomy Family History Father Myocardial infarction Grandfather (Paternal) Myocardial infarction Grandfather (Maternal) Prostate cancer Denies family history of Colon cancer Ovarian cancer Breast cancer Social History Smoking Status: Former smoker Smoking End Date: 5 years ago.; Hx Alcohol Use: Yes Alcohol type: beer, wine and hard liquor Hx Substance Use: No Preferred Language: Burundian Communication Ability: Effective Theatrical Trouper Required: No Beliefs That Will Affect Care: None marital status: Current Living Situation: Spouse Current Living Situation Comment: Glor[place] current occupational status: employed Feels Safe at Home: Yes Safety Concerns: Feels Safe At This Time Assistive Devices: Glasses Review of Systems Review of Systems: As per HPI, all 10 systems reviewed, all other ROS negative Physical Exam Physical Exam: GENERAL: Comfortable, pleasant, obese, no respiratory distress SKIN: Normal color, warm HEENT: [place] palpebral conjunctivae, no ptosis, dry buccal mucosa NECK : Supple, short neck, no tenderness CHEST : CTA, no tenderness HEART : RRR, no obvious murmurs ABDOMEN: Some distention, minimal epigastric tenderness EXTREMITIES : Minimal LE swelling, no LE tenderness, no other conspicuous deformities noted NEUROLOGIC : Coherent, no facial asymmetry, no other gross focality Results & Data Results & Data ([facility]) Vital Signs (Past 12 Hours) Vital Signs Temp Pulse Resp BP Pulse Ox 10/15/21 23:20 72 20 94 10/15/21 23:15 70 22 132/82 95 10/15/21 23:00 72 18 127/76 93 10/15/21 22:30 74 18 117/72 99 10/15/21 22:15 71 18 113/77 100 10/15/21 22:01 74 20 135/83 99 10/15/21 21:35 69 18 126/73 99 10/15/21 21:30 73 18 127/71 97 10/15/21 21:25 36.7 C 78 18 119/70 97 10/15/21 21:20 74 16 116/69 93 10/15/21 21:15 72 16 131/66 88 L 10/15/21 21:10 70 18 111/69 92 10/15/21 21:09 74 20 115/68 94 10/15/21 21:05 73 16 113/75 93 10/15/21 21:01 57 L 16 66/40 L 94 10/15/21 21:00 61 16 67/42 L 93 10/15/21 20:47 86 18 119/76 93 Laboratory Results Laboratory Results WBC 18.23 K/uL (4.8-10.8) H 10/15/21 21:04 RBC 5.03 M/uL (4.7-6.1) 10/15/21 21:04 Hgb 16.2 g/dL (14.0-18.0) 10/15/21 21:04 POC Hgb 16.0 g/dl (14.0-18.0) 10/15/21 21:15 Hct 45.2 % (42-52) 10/15/21 21:04 POC Hct 47 % (42-52) 10/15/21 21:15 MCV 89.9 fL (80-100) 10/15/21 21:04 MCH 32.2 pg (25-34) 10/15/21 21:04 MCHC 35.8 g/dL (32-36) 10/15/21 21:04 RDW Std Deviation 43.5 fL (36.4-46.3) 10/15/21 21:04 RDW Coeff of Hali 13.3 % (11.5-14.5) 10/15/21 21:04 Plt Count 263 K/uL (130-400) 10/15/21 21:04 MPV 9.3 fL (7.4-10.4) 10/15/21 21:04 Immature Gran % (Auto) 0.4 % 10/15/21 21:04 Neut % (Auto) 87.5 % 10/15/21 21:04 Lymph % (Auto) 7.1 % 10/15/21 21:04 Leake % (Auto) 4.1 % 10/15/21 21:04 Eos % (Auto) 0.7 % 10/15/21 21:04 Baso % (Auto) 0.2 % 10/15/21 21:04 Neut # (Auto) 15.95 K/uL (1.4-6.5) H 10/15/21 21:04 Lymph # (Auto) 1.30 K/uL (1.2-3.4) 10/15/21 21:04 Leake # (Auto) 0.74 K/uL (0.11-0.59) H 10/15/21 21:04 Eos # (Auto) 0.12 K/uL (0-0.5) 10/15/21 21:04 Baso # (Auto) 0.04 K/uL (0-0.2) 10/15/21 21:04 Immature Gran # (Auto) 0.08 K/uL (0.00-0.02) H 10/15/21 21:04 POC Sodium 137 mmol/L (135-144) 10/15/21 21:15 Sodium 135 mmol/L (136-145) L 10/15/21 21:04 POC Potassium 3.9 mmol/L (3.3-5.0) 10/15/21 21:15 Potassium 4.4 mmol/L (3.5-5.1) 10/15/21 22:18 POC Chloride 98 mmol/L (101-112) L 10/15/21 21:15 Chloride 97 mmol/L (98-107) L 10/15/21 21:04 Carbon Dioxide 26 mmol/L (21-32) 10/15/21 21:04 POC Total CO2 26 mmol/L (24-31) 10/15/21 21:15 Anion Gap 12 (3-11) H 10/15/21 21:04 POC Anion Gap 18.0 mmol/L (16-25) 10/15/21 21:15 POC BUN 36 mg/dl (7-18) H 10/15/21 21:15 BUN 35 mg/dl (6-23) H 10/15/21 21:04 Creatinine 1.13 mg/dl (0.6-1.4) 10/15/21 21:04 POC Creatinine 1.1 mg/dl (0.6-1.3) 10/15/21 21:15 Est Cr Clr Drug Dosing 90.1 ml/min 10/15/21 21:04 Est GFR ( Amer) 78.6 ml/min 10/15/21 21:04 Est GFR (Non-Af Amer) 67.8 ml/min 10/15/21 21:04 BUN/Creatinine Ratio 31.0 (10-20) H 10/15/21 21:04 Glucose 161 mg/dl (70-99(Fasting)) H 10/15/21 21:04 POC Glucose (other) 183 mg/dl (70-99) H 10/15/21 21:15 Calcium 10.6 mg/dl (8.5-10.1) H 10/15/21 21:04 POC Ioniz Calcium Kirk 1.26 mmol/l (1.12-1.32) 10/15/21 21:15 Total Bilirubin 0.8 mg/dl (0.2-1.0) 10/15/21 21:04 Direct Bilirubin 0.1 mg/dl (0-0.2) 10/15/21 22:18 AST 20 U/L (13-39) 10/15/21 22:18 ALT 23 U/L (7-52) 10/15/21 21:04 Alkaline Phosphatase 79 U/L (34-104) 10/15/21 21:04 Troponin I < 0.03 ng/ml (0-0.04) 10/15/21 21:04 Total Protein 8.4 gm/dl (6.0-8.3) H 10/15/21 21:04 Albumin 4.7 gm/dl (3.4-5.0) 10/15/21 21:04 Globulin 3.7 gm/dl (2.5-4.0) 10/15/21 21:04 Albumin/Globulin Ratio 1.3 (0.9-2) 10/15/21 21:04 Lipase 51 U/L (11-82) 10/15/21 21:[address] chest initial read: The pulmonaryarterial tree iswell-opacified with contrast. No pulmonaryemboli are identified. The aorta is mildlycalcified but nondilated. There is no aneurysmor dissection. The heart is not enlarged. There is mild coronarycalcification. No pericardial effusion is seen. No mediastinal or axillarylymphadenopathyor mass is present. The lungs are well-inflated. There is slight central interstitial prominence which mayrepresent edema or subsegmental atelectasis. No pneumothorax or pleural effusion. Mild multilevel osteophytosis throughout the thoracic spine. No acute fracture or bone lesion. CT abdomen pelvis initial read: There are gas and fluid-filled distended proximal small bowel loops in the upper abdomen. There is a segment of slightlyedematous but appearing small bowel containing more solid-appearing stool beyond which the small bowel is completelydecompressed indicating intermediate grade mid small bowel obstruction. The appendix is normal. No pneumoperitoneumor free fluid is seen. The liver, gallbladder, pancreas, spleen, adrenal glands, and kidneys appear nonacute. There are 2 simple cysts involving the right kidneymeasuring up to 4 cm. The aorta is mildlycalcified but nondilated. Mild degenerative changes in the spine. No fracture or bone lesion. Medications Administered EKG as per my interpretation rate 65, NSR, normal axis, no ischemia
[2021-10-15] MEDS ORDERED: PROMETHAZINE HCL 12.5 MG in SODIUM CHLORIDE 0.9% 50 ML IV PRN (23:49)
[2021-10-15] MEDS ORDERED: KETOROLAC TROMETHAMINE 15 MG/ML VIAL IV PRN (23:49)
[2021-10-16] MEDS ORDERED: LACTATED RINGER'S 1,000 ML IV STA (00:14)
[2021-10-16] MEDS ORDERED: ACETAMINOPHEN 325 MG TAB PO PRN (00:49)
[2021-10-16 06:09] LABS: Appearance Urine Clear (Clear); Bilirubin Urine Negative (Negative); Blood Urine Negative (Negative); Color Urine Yellow; Glucose Urine UA Negative (Negative); Ketones Urine Negative (Negative); Leukocyte Esterase Urine Negative (Negative); Nitrite Urine Negative (Negative); Protein Urine Negative (Negative); Specific Gravity Urine 1.044 (1.000-1.030); Urobilinogen Urine Negative (Negative)
--- NOTE | 2021-10-16 07:25 | XRay Report ---
XR chest 1V portable CLINICAL HISTORY: Chest Pain. COMPARISON STUDY: 02/18/2017 TECHNIQUE: 1 view of the chest FINDINGS: Single frontal view of the chest demonstrates the cardiomediastinal silhouette to be within normal li mits. The lungs are clear of alveolar opacities. There is no evidence for pleural effusion. There is no evidence for vascular congestion. There is no acute osseous pathology. IMPRESSION: 1. No acute cardiopulmonary disease. ACT 112: Negative or not required by law. Electronically signed by: Esvin Samson M.D. 10/16/2021 7:24 AM
--- NOTE | 2021-10-16 07:31 | CT Scan Report ---
CT angio chest PE protocol CLINICAL HISTORY: Hypoxia. COMPARISON STUDY: Portable chest from 10/15/2021 CT DOSE: 2228.35 mGy.cm TECHNIQUE: CT Angio of the chest was performed.followed by image post processing with coronal, and s agittal MIP reformats. Contrast Volume: Optiray 320, 117 ml FINDINGS: Vasculature: There is homogeneous perfusion of the pulmonary vasculature bilaterally. No intraluminal filling defects or evidence for pulmonary embolus is seen. Airway: The airway is clear. No endobronchial lesion is identified. Lungs: Minimal dependent edema is seen at the lung bases posteriorly. The lungs are clear of acute al veolar opacities, air bronchograms or pulmonary nodules. Pleura: There is no evidence for pleural effusion. There is no evidence for pneumothorax. Mediastinum: There is no evidence for pathologic adenopathy. The heart size is within normal limits. Mild coronary artery calcification is present. The thoracic aorta is within normal limits. There is n o evidence for pericardial effusion. Upper abdomen:The adrenal glands are normal bilaterally. The stomach is distended with liquid and pb d stuff. There is contraction of the gallbladder due to the nonfasting state. There is a small slidin g-type hiatal hernia. Osseous structures: There is no acute osseous pathology. Impression: 1. No CTA evidence for pulmonary embolus. 2. No acute chest disease. 3. Mild coronary artery calcification. 4. Additional nonacute findings are delineated above. ACT 112: Negative or not required by law. Electronically signed by: Esvin Samson M.D. 10/16/2021 7:29 AM
[2021-10-16] MEDS ORDERED: PNEUMOCOCCAL POLYSACCHARIDES 25 MCG/0.5 ML VIAL/SYR IM ONE (08:00)
--- NOTE | 2021-10-16 08:09 | CT Scan Report ---
CT OF THE ABDOMEN AND PELVIS WITH CONTRAST CLINICAL HISTORY: Abdominal pain, nausea and vomiting. COMPARISON STUDY: Abdominal ultrasound January 02, 2019. CT of the abdomen and pelvis December 15, 2018. TECHNIQUE: Following IV administration of 117 mL of Optiray, axial images of the abdomen and pelvis w ere obtained from the lung bases to the proximal femurs. Images were reviewed in the axial, sagittal, and coronal planes. IV contrast was administered without complication. Automated exposure control w as utilized for the study. A dose lowering technique was utilized adhering to the principles of ALAR Tanya. FINDINGS: Lung bases are unremarkable. No pneumatosis, free air or portal venous gas is present. The liver, spleen, adrenal glands, left kidney and pancreas are unremarkable. 2 water attenuation right r enal lesions reflect cysts. No biliary or pancreatic ductal dilatation. No peripancreatic or perichol ecystic infiltration. The appendix is normal. The proximal to mid small bowel is mildly dilated and f luid-filled. Small bowel feces sign is noted within the central abdomen. Suspected transition point o n axial image 203 of 511 is noted. Distal small bowel is relatively decompressed. There is mild assoc iated mesenteric stranding. Major vasculature is patent. No lymphadenopathy is present. No acute frac ture or suspicious lesion within the visualized skeletal structures. IMPRESSION: Findings consistent with a partial small bowel obstruction with transition point within the mid small bowel, as described above. Associated mesenteric infiltration. No pneumatosis, free air or portal ve nous gas. ACT 112: Negative or not required by law. Electronically signed by: Jonas Crum M.D. 10/16/2021 8:07 AM
[2021-10-16 08:27] LABS: Basophils # (auto) 0.03 K/uL (0-0.2); Basophils % (auto) 0.3 %; Eosinophils # (auto) 0.22 K/uL (0-0.5); Eosinophils % (auto) 1.9 %; Hematocrit (blood only) 39.6 % (42-52); Hemoglobin 13.3 g/dL (14.0-18.0); Immature Granulocytes # (auto) 0.03 K/uL (0.00-0.02); Immature Granulocytes % (auto) 0.3 %; Lymphocytes # (auto) 1.07 K/uL (1.2-3.4); Lymphocytes % (auto) 9.4 %; Mean Corpuscular Hemoglobin 31.1 pg (25-34); Mean Corpuscular Hgb Conc 33.6 g/dL (32-36); Mean Corpuscular Volume 92.5 fL (80-100); Mean Platelet Volume 9.1 fL (7.4-10.4); Monocytes # (auto) 0.77 K/uL (0.11-0.59); Monocytes % (auto) 6.8 %; Neutrophils # (auto) 9.22 K/uL (1.4-6.5); Neutrophils % (auto) 81.3 %; Platelet Count 208 K/uL (130-400); RDW Coefficient of Variation 13.3 % (11.5-14.5); RDW Standard Deviation 45.1 fL (36.4-46.3); Red Blood Count 4.28 M/uL (4.7-6.1); White Blood Count 11.34 K/uL (4.8-10.8)
[2021-10-16 08:51] LABS: BUN Creatinine Ratio 31.3 (10-20); Calcium 8.8 mg/dl (8.5-10.1); Creatinine Clr Calc Pharmacy 120.3 ml/min; Est GFR (Non-African American) 92.3 ml/min; Potassium 4.2 mmol/L (3.5-5.1)
[2021-10-16] MEDS ORDERED: lisinopril 20 MG TAB PO SCH (09:00)
[2021-10-16] MEDS ORDERED: ROSUVASTATIN CALCIUM 10 MG TAB PO SCH (09:00)
[2021-10-16] MEDS ORDERED: ENOXAPARIN INJ 40 MG/0.4 ML SYR SQ SCH (09:00)
--- NOTE | 2021-10-16 09:10 | XRay Report ---
XR KUB/Abdomen 1 view CLINICAL HISTORY: Abdominal pain with vomiting.. Follow-up partial small bowel obstruction COMPARISON STUDY: CT of the abdomen from 10/15/2021 TECHNIQUE: Single view of the abdomen. FINDINGS: The bowel gas pattern is within normal limits without evidence for dilatation or obstruction. No dist ended loops of bowel are seen radiographically. However, is possible that they're fluid-filled. There is no evidence for organomegaly or gross intra-abdominal mass. No abnormal calcifications are seen a long the course of the urinary tracts bilaterally. No acute osseous pathology. IMPRESSION: 1. No distended loops of bowel are seen radiographically. ACT 112: Negative or not required by law. Electronically signed by: Esvin Samson M.D. 10/16/2021 9:08 AM
--- NOTE | 2021-10-16 09:10 | Surgery Consultation ---
Date of Consultation October 16, 2021 Assessment & Plan (1) Small bowel obstruction: symptoms improved overnight Enteritis vs SBO will check KUB, consider starting on clears Supervising Physician Co-Signing Physician Notes Patient seen and examined, labs and imaging reviewed, agree with above. 66-year-old male presented to the emergency department yesterday with nausea vomiting and bloating. No prior abdominal surgeries no prior abdominal infections or trauma. He had a CT scan which suggested possible partial small bowel obstruction, however this morning he is having bowel movements and passing gas. His pain is resolved and he is not having any nausea. On exam he is afebrile stable vitals. Abdomen soft, nondistended, nontender, no significant hernias. KUB this morning without obstruction. This is likely gastritis or enteritis, unlikely to be small bowel obstruction. Would recommend advancing diet as tolerated, surgery will sign off, call with questions or concerns. History of Present Illness Attending Physician: Barbara Ricketts MD History of Present Illness 66 y/o male with no previous abdominal surgery had heartburn/substernal discomfort that began around 3 PM yesterday and continued about 6 hours before coming to the ED. Had nausea and vomited once at home and once in the ED. No symptoms prior to this. This morning he feels back to "normal." BM this morning, some flatus. No nausea, but not hungry. Had 2 apples yesterday before symptoms began. Has had colonoscopy in the past. Allergies Allergy/AdvReac Type Severity Reaction Status Date / Time tetracycline Allergy Severe FACE, Verified 10/15/21 21:29 TONGUE, LIPS SWELLED Home Medications Medication Instructions Recorded Confirmed Type lisinopril 20 1 tab PO QAM 10/15/21 10/15/21 History mg-hydrochlorothiazide 25 mg tablet rosuvastatin 10 mg tablet 10 mg PO QAM 10/15/21 10/15/21 History Patient History Medical History Hyperlipidemia Hypertension Lumbar radiculopathy Surgical History History of arthroscopy of left knee History of lumbar discectomy Family History Father Myocardial infarction Grandfather (Paternal) Myocardial infarction Grandfather (Maternal) Prostate cancer Denies family history of Colon cancer Ovarian cancer Breast cancer Social History Smoking Status: Former smoker Smoking End Date: 5 years ago.; Hx Alcohol Use: Yes Alcohol type: beer, wine and hard liquor Hx Substance Use: No Preferred Language: Macedonian Communication Ability: Effective 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 Beliefs That Will Affect Care: None marital status: Current Living Situation: Spouse Current Living Situation Comment: [place] current occupational status: employed Feels Safe at Home: Yes Safety Concerns: Feels Safe At This Time Assistive Devices: Glasses Review of Systems Constitutional: no fever, no chills and no anorexia Gastrointestinal: + abdominal pain, + nausea and + vomiting; no bloating, no change in bowel habits and no constipation Physical Exam Constitutional: WD/WN, vitals as above ENMT: does not have NG Respiratory: normal respiratory effort, lungs clear to auscultation Cardiovascular: RRR, no murmur, no edema Gastrointestinal (Abdomen): Inspection/Auscultation: abdomen not distended Percussion/Palpation: abdomen soft; no guarding Results & Data ([facility]) Vital Signs (Past 12 Hours) Vital Signs Temp Pulse Pulse Resp BP BP Pulse Ox 10/16/21 07:17 37.1 C 76 18 94/62 L 93 10/16/21 01:02 36.4 C L 74 16 112/78 91 10/16/21 00:00 75 19 132/86 96 10/15/21 23:45 72 21 121/82 93 10/15/21 23:30 70 21 127/80 95 10/15/21 23:20 72 20 94 10/15/21 23:15 70 22 132/82 95 10/15/21 23:00 72 18 127/76 93 10/15/21 22:30 74 18 117/72 99 10/15/21 22:15 71 18 113/77 100 10/15/21 22:01 74 20 135/83 99 10/15/21 21:35 69 18 126/73 99 10/15/21 21:30 73 18 127/71 97 10/15/21 21:25 36.7 C 78 18 119/70 97 10/15/21 21:20 74 16 116/69 93 10/15/21 21:15 72 16 131/66 88 L 10/15/21 21:10 70 18 111/69 92 10/15/21 21:09 74 20 115/68 94 10/15/21 21:05 73 16 113/75 93 PG Care Time/CCT Total # of Minutes Spent Total Time Spent with Patient: Total time spent is greater than 50% in coordination of care (as documented) at patient's floor/unit and/or counseling patient: Coding Level of Care Code 14125 Inpt Consult Level 3 Diagnoses Small bowel obstruction K56.609
[2021-10-16] MEDS ORDERED: LACTATED RINGER'S 1,000 ML IV SCH (13:00)
--- NOTE | 2021-10-16 16:43 | Discharge Summary ---
Date of Service October 16, 2021 Admission HPI Per Admitting Provider History obtained from patient, family, and records. Medical history significant for hypertension, hyperlipidemia, prediabetes, past tobacco abuse. Last confinement 2016 under [facility] for elective back surgery. This afternoon, patient noted sudden onset achy epigastric pain with nausea symptoms after returning home from work. No relief with antacid intake. Subsequent sweatiness and emesis. No chest pain, no S OB. Good bowel movement today. No prior episodes. No prior abdominal surgeries. Patient brought to the ER by . Medical History as above Surgical History : Neck surgery, knee surgeries Family History : Heart disease Personal/Social history : Past tobacco abuse, occasional EtOH intake, landscape work Admission Exam Per Admitting Provider History obtained from patient, family, and records. Medical history significant for hypertension, hyperlipidemia, prediabetes, past tobacco abuse. Last confinement 2016 under [facility] for elective back surgery. This afternoon, patient noted sudden onset achy epigastric pain with nausea symptoms after returning home from work. No relief with antacid intake. Subsequent sweatiness and emesis. No chest pain, no S OB. Good bowel movement today. No prior episodes. No prior abdominal surgeries. Patient brought to the ER by . Principal Diagnosis Abdominal pain Possible Small bowel obstruction Discharge Exam GENERAL: Comfortable, pleasant, obese, no respiratory distress SKIN: Normal color, warm HEENT: [place] palpebral conjunctivae, no ptosis, dry buccal mucosa NECK : Supple, short neck, no tenderness CHEST : CTA, no tenderness HEART : RRR, no obvious murmurs ABDOMEN: Some distention, minimal epigastric tenderness EXTREMITIES : Minimal LE swelling, no LE tenderness, no other conspicuous deformities noted NEUROLOGIC : Coherent, no facial asymmetry, no other gross focality Discharge Data Allergies Allergy/AdvReac Type Severity Reaction Status Date / Time tetracycline Allergy Severe FACE, Verified 10/15/21 21:29 TONGUE, LIPS SWELLED Consultations 10/15/21 23:22 ED Decision to Admit Stat 10/16/21 08:00 Consult General Surgery Routine Ordered Studies 10/15/21 21:28 CT abd pelvis IV con only Urgent 10/15/21 21:47 CT angio chest PE protocol Urgent XR KUB/Abdomen 1 view CLINICAL HISTORY: Abdominal pain with vomiting.. Follow-up partial small bowel obstruction COMPARISON STUDY: CT of the abdomen from 10/15/2021 TECHNIQUE: Single view of the abdomen. FINDINGS: The bowel gas pattern is within normal limits without evidence for dilatation or obstruction. No distended loops of bowel are seen radiographically. However, is possible that they're fluid-filled. There is no evidence for organomegaly or g ross intra-abdominal mass. No abnormal calcifications are seen along the course of the urinary tracts bilaterally. No acute osseous pathology. IMPRESSION: 1. No distended loops of bowel are seen radiographically. ACT 112: Negative or not required by law. Electronically signed by: Esvin Samson M.D. 10/16/2021 9:08 AM Dictated:10/16/21905 Transcribed: 10/16/21905 CT angio chest PE protocol CLINICAL HISTORY: Hypoxia. COMPARISON STUDY: Portable chest from 10/15/2021 CT DOSE: 2228.35 mGy.cm TECHNIQUE: CT Angio of the chest was performed.followed by image post processing with coronal, and sagittal MIP reformats. Contrast Volume: Optiray 320, 117 ml FINDINGS: Vasculature: There is homogeneous perfusion of the pulmonary vasculature bilaterally. No intraluminal filling defects or evidence for pulmonary embolus is seen. Airway: The airway is clear. No endobronchial lesion is identified. Lungs: Minimal dependent edema is seen at the lung bases posteriorly. The lungs are clear of acute alveolar opacities, air bronchograms or pulmonary nodules. Pleura: There is no evidence for pleural effusion. There is no evidence for pneumothorax. Mediastinum: There is no evidence for pathologic adenopathy. The heart size is within normal limits. Mild coronary artery calcification is present. The thoracic aorta is within normal limits. There is no evidence for pericardial effusion. Upper abdomen:The adrenal glands are normal bilaterally. The stomach is distended with liquid and food stuff. There is contraction of the gallbladder due to the nonfasting state. There is a small sliding-type hiatal hernia. Osseous structures: There is no acute osseous pathology. Impression: 1. No CTA evidence for pulmonary embolus. 2. No acute chest disease. 3. Mild coronary artery calcification. 4. Additional nonacute findings are delineated above. ACT 112: Negative or not required by law. Electronically signed by: Esvin Samson M.D. 10/16/2021 7:29 AM Dictated:10/16/21724 Transcribed: 10/16/21724 CT OF THE ABDOMEN AND PELVIS WITH CONTRAST CLINICAL HISTORY: Abdominal pain, nausea and vomiting. COMPARISON STUDY: Abdominal ultrasound January 02, 2019. CT of the abdomen and pelvis December 15, 2018. TECHNIQUE: Following IV administration of 117 mL of Optiray, axial images of the abdomen and pelvis were obtained from the lung bases to the proximal femurs. Images were reviewed in the axial, sagittal, and coronal planes. IV contrast was administered without complication. Automated exposure control was utilized for the study. A dose lowering technique was utilized adhering to the principles of ALARA. FINDINGS: Lung bases are unremarkable. No pneumatosis, free air or portal venous gas is present. The liver, spleen, adrenal glands, left kidney and pancreas are unremarkable. 2 water attenuation right renal lesions reflect cysts. No biliary or pancreatic ductal dilatation. No peripancreatic or pericholecystic infiltration. The appendix is normal. The proximal to mid small bowel is mildly dilated and fluid-filled. Small bowel feces sign is noted within the central abdomen. Suspected transition point on axial image 203 of 511 is noted. Distal small bowel is relatively decompressed. There is mild associated mesenteric stranding. Major vasculature is patent. No lymphadenopathy is present. No acute fracture or suspicious lesion within the visualized skeletal structures. IMPRESSION: Findings consistent with a partial small bowel obstruction with transition point within the mid small bowel, as described above. Associated mesenteric infiltration. No pneumatosis, free air or portal venous gas. ACT 112: Negative or not required by law. Electronically signed by: Jonas Crum M.D. 10/16/2021 8:07 AM Dictated:10/16/21 0800 Transcribed: 10/16/21 0802 XR chest 1V portable CLINICAL HISTORY: Chest Pain. COMPARISON STUDY: 02/18/2017 TECHNIQUE: 1 view of the chest FINDINGS: Single frontal view of the chest demonstrates the cardiomediastinal silhouette to be within normal limits. The lungs are clear of alveolar opacities. There is no evidence for pleural effusion. There is no evidence for vascular congestion. There is no acute osseous pathology. IMPRESSION: 1. No acute cardiopulmonary disease. ACT 112: Negative or not required by law. Electronically signed by: Esvin Samson M.D. 10/16/2021 7:24 AM Dictated:10/16/2123 Transcribed: 10/16/21722 Hospital Course (1) Small bowel obstruction: CT abd/pelvis on admission showed Findings consistent with a partial small bowel obstruction with transition point within the mid small bowel, Patient currently comfortable. Denies any complaint Repeat KUB showed No distended loops of bowel are seen radiographically. Tolerated diet Surgery on board [place] from surgery standpoint to discharge home Hypertension stable hyperlipidemia Coninue statin Rx prediabetes Most recent hemoglobin A1c of 5.17 March 2021 past tobacco abuse DVT prophylaxis per Lovenox subcu Full code Patient requesting updates from providers. Ms. Laisha Verma, contact #[phone]. Total Time Total Time Spent Total Time Spent (In Minutes): 35 minutes Discharge Plan Discharge Items Patient Disposition: Home - Self-Care Reason For Visit: BOWEL OBS Discharge Diagnosis: Abdominal pain Possible Small bowel obstruction Activity: Resume your previous activity Non-emergency contact: Primary Care Provider Call non-emergency contact if: you have any medication questions and your symptoms worsen Follow-up/Referrals: Sunday Xiao MD [Primary Care Provider] - 10/20/21 3:00 pm (Date & Time 10/20/2021 3:00 PM Provider Nicolasa Boudreaux Department [facility] ) Diet: Heart Healthy Addtl Attending Provider Instructions: Follow up with your primary care provider Dr. Boudreaux ( Dr. Xiao's colleague) on 10/20/2021 @ 3:00 PM at the [facility] Continue low fiber diet and advance as tolerated slowly Seek medical attention if symptoms reoccur Pending Studies at Discharge: No Stand-Alone Forms: My [facility] [employer], Smoking Cessation Medications and DC Order Prescriptions: Continued lisinopril-hydrochlorothiazide 20-25 mg Tablet 1 tab PO QAM RF: 0 rosuvastatin 10 mg tablet 10 mg PO QAM RF: 0 Discharge Orders: Discharge Order (Routine); Ordered 10/16/21 Ordered By: Barbara Nash/Other Patient Handouts: Small Bowel Obstruction, Low-Fiber Diet Admission Data Admit Date/Time: 10/15/21 23:46 Attending Provider: Barbara Ricketts Admit Provider: Hemal Mon Primary Care Provider: Sunday Xiao Other Providers: Hemal Mon ; Junior Weaver ; Carlos Alberto Kaye ; Jj Cutler ; Kyler Toro Jr ; Connor Graves ; Home Donohue ; Terri Christensen ; Herbert Jaeger ; Tommy Garza ; Reji Stover-Gabriela Other Interventions: Discharge Summary Assessment (RN) Last Done: 10/16/21 16:56
== END 2021-10-16 18:29 | disposition home or self-care (01) | DRG 390 ==
LOC: ED 20:45 → SUATTDRO 23:46 → 3N 23:46